=== PATIENT | male | born 1985 | race African-American/Black ===

== ENCOUNTER 2016-11-22 00:55 | Emergency (ER) | payer BC, OTHER ==
[2016-11-22 01:14] VITALS: BP 146/72; PULSE 82; TEMP 98.3; BMI 26.7
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
[2016-11-22] MEDS ORDERED: LIDOCAINE 2%/EPINEPHRINE 1:100000 (50 ML MD VIAL) INF ONE (01:53)
[2016-11-22] MEDS ORDERED: LIDOCAINE 1%/EPI 1:100000 (50 ML MULTI DOSE VIAL) ONE (01:59)
[2016-11-22] MEDS ORDERED: CEPHALEXIN MONOHYDRATE 500 MG CAPSULE (UD) PO ONE (03:13)
[2016-11-22] MEDS ORDERED: CEPHALEXIN MONOHYDRATE 250 MG CAPSULE (FP) ONE (03:25)
== END 2016-11-22 03:28 | disposition home or self-care (01) ==
LOC: JER 00:55
PROC: 0CQ0XZZ Repair Upper Lip, External Approach (ICD-10-PCS; principal; 2016-11-22)
DX: S01.511A Laceration without foreign body of lip, initial encounter (principal); S00.83XA Contusion of other part of head, initial encounter; Y04.2XXA Assault by strike against or bumped into by another person, initial encounter; Y93.89 Activity, other specified; Y92.488 Other paved roadways as the place of occurrence of the external cause; Y07.9 Unspecified perpetrator of maltreatment and neglect
CPT/HCPCS: 99282-25